=== PATIENT | female | born 1980 | race American Indian/Alaskan Native ===

== ENCOUNTER 2016-12-01 13:54 | Emergency (ER) | payer SELFPAY ==
[2016-12-01 14:09] VITALS: BP 151/61
[2016-12-01 15:28] LABS: Basophils % (Auto) 1.4 % (0.0-1.8); Hematocrit 39.7 % (30.3-42.9); Hemoglobin 12.7 gm/dl (10.1-14.3); Mean Corpuscular HGB Conc 32 % (30-34); Mean Corpuscular Hemoglobin 29 pg (28-32); Mean Corpuscular Volume 91 fl (79-97); Red Blood Count 4.35 M/mm3 (3.65-5.03); Red Cell Distribution Width 15.3 % (13.2-15.2); White Blood Count 11.5 K/mm3 (4.5-11.0)
[2016-12-01 15:46] LABS: Alanine Aminotransferase 19 units/L (7-56); Albumin 4.3 g/dL (3.9-5); Albumin/Globulin Ratio 1.3 %; Alkaline Phosphatase 49 units/L (35-129); Anion Gap 22 mmol/L; BUN/Creatinine Ratio 11.25; Blood Urea Nitrogen 9 mg/dL (7-17); Calcium 9.3 mg/dL (8.4-10.2); Carbon Dioxide 17 mmol/L (22-30); Chloride 99.6 mmol/L (98-107); Glucose 158 mg/dL (65-100); Lipase 26 units/L (13-60); Potassium 3.7 mmol/L (3.6-5.0); Sodium 135 mmol/L (137-145); Total Protein 7.5 g/dL (6.3-8.2)
[2016-12-01 15:55] LABS: Platelet Count 164 K/mm3 (140-440)
[2016-12-01] MEDS ORDERED: ZOFRAN ODT PO ONE (16:14)
[2016-12-01] MEDS ORDERED: ZOFRAN ODT ONE (16:19)
== END 2016-12-01 18:25 | disposition left against medical advice (07) ==
LOC: ED 13:54
DX: R10.9 Unspecified abdominal pain (principal); Z53.21 Procedure and treatment not carried out due to patient leaving prior to being seen by health care provider
CPT/HCPCS: 36415; 80053; 83690; 84703; 85025; Q0162